=== PATIENT | male | born 1985 | race Caucasian/White ===

== ENCOUNTER 2024-04-21 06:44 | Emergency (ER) | payer BC ==
[2024-04-21 07:48] LABS: Absolute Eosinophils 0.1 K/uL (0-0.5); Absolute Lymphocytes (CBC) 1.1 K/uL (0.7-4.9); Absolute Monocytes 0.5 K/uL (0.1-1.3); Absolute Neutrophil 3.3 K/uL (1.8-8.0); Basophils % 0.5 % (0-1.3); Eosinophils % 1.9 % (0-4.4); Hemoglobin 17.2 g/dL (13.6-17.9); Lymphocytes % 21.9 % (15.3-44.8); MCH 27.7 pg (27.0-35.0); MCV 83.8 fL (80-100); MPV 7.4 fL (7.6-11.3); Monocytes % 10.1 % (3.3-12.3); Neutrophils % 65.6 % (41.7-73.7); Nucleated Red Blood Cells % 0.3 % (0-0); Platelets 202 thou/uL (152-406); Red Cell Distribution Width 13.9 % (12.1-15.2)
[2024-04-21 07:55] LABS: Anion Gap 6.2 mEq/L (5.0-15.0); Potassium 4.2 mEq/L (3.5-5.1); Troponin High Sensitivity 3.1 pg/mL (<58.9)
--- NOTE | 2024-04-21 08:04 | EDPHYS ---
Physician Documentation [facility] Name: Rolando Cohen Age: 38 yrs Sex: Male : 1985 Arrival Date: 04/21/2024 Time: 06:44 Bed 6 Private MD: ED Physician Dimitri Jaeger HPI: 04/21 07:12 This 38 yrs old Male presents to ER via Ambulatory with complaints of Chest Pressure. ec2 07:12 Patient arrives today for evaluation of chest pressure. Patient reports symptom onset ec2 of yesterday. Reports no specific alleviating or exacerbating symptoms. Reports history of hypertension which he takes lisinopril for. Patient reports no specific alleviating or exacerbating factors. Patient reports she is a non-smoker. Reports that he does take testosterone. Reports no significant difficulty breathing. Reports no coagulopathy.. Historical: - Allergies: 07:11 No Known Allergies; ld1 - Home Meds: 07:09 lisinopril 30 mg Oral tablet [Active]; testosterone cypionate intramuscular [Active]; hb estrogen chacha [Active]; - PMHx: 07:09 Hypertension; hb - PSHx: 07:09 Gastric Sleeve; hb - Immunization history:: Adult Immunizations up to date. - Infectious Disease History:: Denies. - Social history:: Smoking status: Patient denies any tobacco usage or history of. Patient uses alcohol, on a daily basis. ROS: 07:12 Constitutional: as per hpi ec2 Exam: 07:12 Constitutional: GEN: NAD Head: atraumatic Eyes: EOMI Ears: External ears are ec2 normal. CV: regular rate LUNGS: no respiratory distress ABD: non-distended SKIN: no evidence of rashes MSK: no evidence of trauma Vital Signs: 07:08 BP 133 / 91; Pulse 91; Resp 18; Pulse Ox 97% on R/A; Weight 104.33 kg; Height 5 ft. 9 ld1 in. ; Pain 5/10; 07:08 Temp 97.6(TE); ld1 07:08 Body Mass Index 33.96 (104.33 kg, 175.26 cm) ld1 07:08 Pain Scale: Adult ld1 MDM: 07:02 Medical Screening Exam initiated ec2 07:12 Data reviewed: vital signs, nurses notes. ED course: Patient arrives today for chest ec2 discomfort. Examination he is well-appearing nontoxic dividual's otherwise in no acute distress with a reassuring examination. Will obtain lab work, EKG, chest x-ray as well as D-dimer. Differential includes ACS, PE, doubt dissection. Additionally consider costochondritis, reflux.. 07:15 ED course: EKG independently reviewed and interpreted by me, shows normal sinus rhythm, ec2 rate 88, no acute ST segment elevations, intervals are nonactionable.. 08:01 ED course: D-dimer within normal ranges. Troponin within normal ranges. CBC is ec2 reassuring. Metabolic profile does show some renal disease with creatinine 1.36 and GFR 69. Will discharge home have the patient follow-up PCP. Doubt PE, doubt dissection, will forego repeat troponin given duration of symptoms onset of yesterday.. 08:22 ED course: Chest x-ray independently reviewed and interpreted by me, shows no acute ec2 intrathoracic process. On reassessment patient is well-appearing no acute distress. Will discharge home. Return precautions given. Will have the patient follow-up with his primary care doctor and I gave information to follow-up with cardiology as well. 04/21 07:11 Order name: Basic Metabolic Panel; Complete Time: 08:00 ec2 04/21 07:11 Order name: CBC with Diff; Complete Time: 08:00 ec2 04/21 07:11 Order name: NT PRO-BNP; Complete Time: 08:00 ec2 04/21 07:11 Order name: Troponin HS; Complete Time: 08:00 ec2 04/21 07:11 Order name: D-Dimer; Complete Time: 08:00 ec2 04/21 07:11 Order name: XRAY Chest (1 view) ec2 04/21 07:11 Order name: Cardiac monitoring; Complete Time: 07:15 ec2 04/21 07:11 Order name: EKG - Nurse/Tech; Complete Time: 07:15 ec2 04/21 07:11 Order name: IV Saline Lock; Complete Time: 07:15 ec2 04/21 07:11 Order name: Labs collected and sent; Complete Time: 07:15 ec2 04/21 07:11 Order name: O2 Per Protocol; Complete Time: 07:15 ec2 04/21 07:11 Order name: O2 Sat Monitoring; Complete Time: 07:15 ec2 Administered Medications: No medications were administered Disposition Summary: 04/21/24 08:04 Discharge Ordered Notes: Location: Home ec2 Condition: Stable ec2 Diagnosis - Chest pain, unspecified ec2 Followup: ec2 - With: Nick Solomon MD - When: - Reason: Recheck today's complaints Discharge Instructions: - Discharge Summary Sheet ec2 - Nonspecific Chest Pain, Adult, [id number] ec2 Forms: - Medication Reconciliation Form ec2 - Antibiotic Education ec2 - Prescription Opioid Use ec2 - Patient Portal Instructions ec2 - Leadership Thank You Letter ec2 Signatures: Dispatcher [employer] Qing Cash RN RN Christine Cotter RN RN ld1 Dimitri Jaeger MD MD ec2 Corrections: (The following items were deleted from the chart) 07:12 07:09 Allergies: No Known Allergies; hb hb 07:12 07:09 PMHx: estrogen chacha; hb hb 07:12 07:09 PMHx: Myocardial infarction; hb hb
--- NOTE | 2024-04-21 08:04 | ER ---
Nurse's Notes [facility] Name: Rolando Cohen Age: 38 yrs Sex: Male : 1985 Arrival Date: 04/21/2024 Time: 06:44 Bed 6 Private MD: Diagnosis: Chest pain, unspecified Presentation: 04/21 07:08 Chief complaint: Patient states: Chest pressure since yesterday. Coronavirus screen: At ld1 this time, the client does not indicate any symptoms associated with coronavirus-19. Ebola Screen: No symptoms or risks identified at this time. Initial Sepsis Screen: Does the patient meet any 2 criteria? No. Patient's initial sepsis screen is negative. Does the patient have a suspected source of infection? No. Patient's initial sepsis screen is negative. Risk Assessment: Do you want to hurt yourself or someone else? Patient reports no desire to harm self or others. Onset of symptoms was April 21, 2024. 07:08 Method Of Arrival: Ambulatory ld1 07:08 Acuity: IVAN 3 ld1 Triage Assessment: 07:11 General: Appears in no apparent distress. comfortable, Behavior is calm, cooperative, ld1 appropriate for age. Pain: Denies pain. EENT: No signs and/or symptoms were reported regarding the EENT system. Neuro: Level of Consciousness is awake, alert, obeys commands, Oriented to person, place, time, situation. Cardiovascular: Capillary refill < 3 seconds Patient's skin is warm and dry. Rhythm is sinus rhythm. Respiratory: Airway is patent Respiratory effort is even, unlabored. GI: Abdomen is round non-distended. : No signs and/or symptoms were reported regarding the genitourinary system. Derm: No signs and/or symptoms reported regarding the dermatologic system. Musculoskeletal: No signs and/or symptoms reported regarding the musculoskeletal system. Historical: - Allergies: 07:11 No Known Allergies; ld1 - Home Meds: 07:09 lisinopril 30 mg Oral tablet [Active]; testosterone cypionate intramuscular [Active]; hb estrogen chacha [Active]; - PMHx: 07:09 Hypertension; hb - PSHx: 07:09 Gastric Sleeve; hb - Immunization history:: Adult Immunizations up to date. - Infectious Disease History:: Denies. - Social history:: Smoking status: Patient denies any tobacco usage or history of. Patient uses alcohol, on a daily basis. Screenin:12 [facility] ED Fall Risk Assessment (Adult) History of falling in the last 3 months, ld1 including since admission No falls in past 3 months (0 pts) Confusion or Disorientation No (0 pts) Intoxicated or Sedated No (0 pts) Impaired Gait No (0 pts) Mobility Assist Device Used No (0 pt) Altered Elimination No (0 pt) Score/Fall Risk Level 0 - 2 = Low Risk Oriented to surroundings, Maintained a safe environment, Educated pt \T\ family on fall prevention, incl call for assistance when getting out of bed, Assessed \T\ reinforced patient's understanding of fall precautions, Provided non-skid footwear, Hourly rounding (assess needs \T\ fall precautionary measures) done, Used ambulatory aids as needed (educated on \T\ assisted with), Used gait belt as appropriate. Abuse screen: Denies threats or abuse. Denies injuries from another. Nutritional screening: No deficits noted. Tuberculosis screening: No symptoms or risk factors identified. Assessment: 07:12 Reassessment: See triage assessment. Pain: Pain does not radiate. Pain began suddenly. ld1 Vital Signs: 07:08 BP 133 / 91; Pulse 91; Resp 18; Pulse Ox 97% on R/A; Weight 104.33 kg; Height 5 ft. 9 ld1 in. ; Pain 5/10; 07:08 Temp 97.6(TE); ld1 07:08 Body Mass Index 33.96 (104.33 kg, 175.26 cm) ld1 07:08 Pain Scale: Adult ld1 ED Course: 06:48 Patient arrived in ED. gm2 06:50 Patient's name was called from ER lobby. No response. ha1 07:02 Dimitri Jaeger MD is Attending Physician. ec2 07:03 EKG done, by ED staff, reviewed by Dimitri Jaeger MD. hb 07:08 Christine Cotter, RADHA is Primary Nurse. ld1 07:11 Triage completed. ld1 07:11 Arm band placed on right wrist. ld1 07:12 Patient has correct armband on for positive identification. Placed in gown. Bed in low ld1 position. Call light in reach. Side rails up X2. environmental monitoring technician on. Pulse ox on. NIBP on. Door closed. Noise minimized. Warm blanket given. 07:12 No provider procedures requiring assistance completed. Inserted saline lock: 20 gauge ld1 in right antecubital area, using aseptic technique. Blood collected. Flushed with 10 mL NS. Patient maintains SpO2 saturation greater than 95% on room air. 08:04 Nick Solomon MD is Referral Physician. ec2 08:16 XRAY Chest (1 view) In Process Unspecified. EDMS 08:24 IV discontinued, intact, bleeding controlled, No redness/swelling at site. ld1 Administered Medications: No medications were administered Medication: 07:12 VIS not applicable for this client. ld1 Outcome: 08:04 Discharge ordered by . ec2 08:24 Discharged to home ambulatory, ld1 08:24 Condition: stable 08:24 Discharge instructions given to patient, Instructed on discharge instructions, follow up and referral plans. Demonstrated understanding of instructions, follow-up care, 08:24 Patient left the ED. ld1 Signatures: Dispatcher [employer] EDQing Howard RN RN Christine Cotter RN RN ld1 Gudelia Wiggins RN RN ha1 Dimitri Jaeger MD MD ec2 Nenita Sutton 2 Corrections: (The following items were deleted from the chart) 07:12 07:09 Allergies: No Known Allergies; hb hb 07:12 07:09 PMHx: estrogen chacha; hb hb 07:12 07:09 PMHx: Myocardial infarction; hb hb
--- NOTE | 2024-04-21 08:27 | RAD REPORT ---
EXAMINATION: ONE VIEW CHEST XR CLINICAL INDICATION: Male, 38 years old.,CHEST PAIN TECHNIQUE: Frontal chest projection is submitted. Examination is limited by patient positioning and t echnique. COMPARISON: No prior exam. FINDINGS: The lungs are well inflated and clear. No pneumothorax or sizable effusion. The heart is normal in s ize. Mediastinal contours are unremarkable. IMPRESSION: No acute intrathoracic abnormalities.
[2024-04-21 08:32] VITALS: BP 133/91; TEMP 97.6; O2SAT 97
--- NOTE | 2024-04-28 11:10 | EKG ---
Test Date: 2024-04-21 Test Time: 07:06:23 Comic Book Designer: ROBY MEASUREMENT RESULTS: Intervals: Rate: 88 OK: 132 QRSD: 82 QT: 356 QTc: 430 [place]: P: 24 OK: 132 QRS: 15 T: 56 INTERPRETIVE STATEMENTS: Normal sinus rhythm Normal ECG No previous ECG available for comparison Electronically Signed On 04-28-24 11:00:31 EXECUTIVE ASSOCIATE by Jorge Luis Cuenca
== END 2024-04-21 08:24 | disposition home or self-care (01) ==
LOC: ER 06:44
DX: R07.9 Chest pain, unspecified (principal); I10 Essential (primary) hypertension; Z98.84 Bariatric surgery status
CPT/HCPCS: 36415; 71045; 80048; 83880; 84484; 85025; 85379; 93005; 99284